=== PATIENT | female | born 1990 | race Caucasian/White ===

== ENCOUNTER 2017-06-29 07:35 | Outpatient (CLI) | payer BC ==
[2017-06-29 08:22] LABS: Hemoglobin 14.4 g/dL (12.0-16.0); Mean Corpuscular HGB CONC 33.5 g/dL (32.0-36.0); Mean Corpuscular Hemoglobin 29.2 pg (27.0-31.0); Mean Corpuscular Volume 87.4 fl (81.0-99.0); Mean Platelet Volume 8.9 fL (7.4-10.4); Platelet Count 181 thou/uL (130-400); RBC Distribution Width 11.9 % (11.5-14.5); Red Blood Cell (RBC) Count 4.94 mill/uL (4.20-5.40); White Blood Cell (WBC) Count 8.2 thou/uL (4.8-10.8)
[2017-06-29 08:30] LABS: Hemoglobin A1c 4.9 % (4.0-6.0)
[2017-06-29 08:48] LABS: ALT (SGPT) 32 U/L (8-55); AST (SGOT) 27 U/L (5-34); Albumin 4.2 g/dL (3.5-5.0); Alkaline Phosphatase 58 U/L (40-150); Anion Gap 12 mmol/L (10-20); BUN (Urea Nitrogen) 11 mg/dL (7.0-18.7); Bilirubin, Total 0.7 mg/dL (0.2-1.2); CRP (Inflammatory) Less than 0.50 mg/dL (= or < 0.5); Calc. Creatinine Clearance 0 mL/min (70-130); Calcium 9.3 mg/dL (7.8-10.44); Carbon Dioxide 26 mmol/L (22-29); Chloride 105 mmol/L (98-107); Cholesterol 168 mg/dl (< 200 Desired); Estimated GFR-MDRD Greater than 90; Globulin 3.3 g/dL (2.4-3.5); Glucose 88 mg/dL (70-105); Magnesium 2.1 mg/dL (1.6-2.6); Potassium 3.9 mmol/L (3.5-5.1); Protein, Total 7.5 g/dL (6.0-8.3); Sodium 139 mmol/L (136-145)
[2017-06-29 10:18] LABS: Free T4 (Free Thyroxine) 0.86 ng/dL (0.70-1.48); Thyroid Stimulating Hormone 0.94 uIU/mL (0.35-4.94); Vitamin D, 25 Hydroxy 40.2 ng/ml (> 30.0)
[2017-06-29 18:14] LABS: Progesterone 6.2 ng/mL
[2017-06-29 18:15] LABS: Ferritin 27.8 ng/mL (10-291)
[2017-06-29 18:20] LABS: Follicle Stimulating Hormone 1.31 mIU/mL (See Ranges)
[2017-06-29 18:35] LABS: Folate (Folic Acid) 12.7 ng/mL (7.0-31.4)
[2017-07-02 05:16] LABS: Growth Hormone 1.7 ng/mL (0.0-10.0)
[2017-07-03 05:20] LABS: Vitamin B6-Pyridoxal Phosphate 17.8 ug/L (2.0-32.8)
== END 2017-06-29 07:36 | disposition home or self-care (01) ==
LOC: MADLAB 07:35
DX: E78.5 Hyperlipidemia, unspecified (principal); D50.9 Iron deficiency anemia, unspecified; I10 Essential (primary) hypertension; R20.8 Other disturbances of skin sensation; M81.0 Age-related osteoporosis without current pathological fracture; D53.9 Nutritional anemia, unspecified; E55.9 Vitamin D deficiency, unspecified; D51.8 Other vitamin B12 deficiency anemias; E11.9 Type 2 diabetes mellitus without complications; R79.1 Abnormal coagulation profile
CPT/HCPCS: 36415; 80053; 82306; 82465; 82533; 82607; 82627; 82670; 82728; 82746; 83001; 83003; 83036; 83090; 83540; 83550; 83735; 83970; 84144; 84146; 84207; 84270; 84305; 84425; 84439; 84443; 84481; 85027; 86140